=== PATIENT | female | born 1980 | race Caucasian/White ===

== ENCOUNTER 2020-11-04 14:46 | Emergency (ER) | payer OTHER ==
[2020-11-04 15:04] VITALS: TEMP 98.3; BMI 25.6
[2020-11-04] MEDS ORDERED: ACETAMINOPHEN 325 MG TABLET (FP) PO ONE (15:38)
[2020-11-04] MEDS ORDERED: ACETAMINOPHEN 325 MG TABLET (FP) ONE (15:42)
[2020-11-04 16:07] LABS: BASO % 0.8 % (0-2.0); EOS % 0.5 % (0-4.5); HEMATOCRIT 41.4 % (32.4-45.2); HEMOGLOBIN 13.8 GM/dL (10.7-15.3); LYMPH % 36.4 % (8-40); MCH 28.6 pg (25.7-33.7); MCHC 33.3 g/dl (32.0-36.0); MEAN CELL VOLUME 85.7 fl (80-96); MEAN PLT VOLUME 7.7 fl (7.5-11.1); MONO % 4.7 % (3.8-10.2); NEUT % 57.6 % (42.8-82.8); PLATELET COUNT 189 10^3/uL (134-434); RBC 4.83 M/mm3 (3.60-5.2); RDW 13.4 % (11.6-15.6); WHITE BLOOD COUNT 5.6 K/mm3 (4.0-10.0)
[2020-11-04 16:21] LABS: CHLORIDE 106 mmol/L (98-107); SODIUM 140 mmol/L (136-145)
[2020-11-04 16:23] LABS: BLOOD UREA NITROGEN 8.4 mg/dL (7-18); CALCIUM 9.2 mg/dL (8.5-10.1)
[2020-11-04 16:24] LABS: ANION GAP 7 MMOL/L (8-16); CO2 27 mmol/L (21-32); GLUCOSE,RANDOM 78 mg/dL (74-106)
[2020-11-04 16:27] LABS: CREATININE 0.7 mg/dL (0.55-1.3); SGOT/AST 13 U/L (15-37); SGPT/ALT 17 U/L (13-61)
[2020-11-04 16:28] LABS: BILIRUBIN,TOTAL 0.4 mg/dL (0.2-1); TOT PROT 7.9 g/dl (6.4-8.2)
[2020-11-04 16:30] LABS: ALK PHOS 54 U/L (45-117)
[2020-11-04] MEDS ORDERED: KETOROLAC TROMETHAMINE 30 MG/1 ML VIAL IVPUSH ONE (19:51)
[2020-11-04] MEDS ORDERED: KETOROLAC TROMETHAMINE 30 MG/1 ML VIAL ONE (19:55)
[2020-11-04 21:04] VITALS: BP 127/79; PULSE 76
== END 2020-11-04 21:03 | disposition home or self-care (01) ==
LOC: JER 14:46
PROC: 3E0333Z Introduction of Anti-inflammatory into Peripheral Vein, Percutaneous Approach (ICD-10-PCS; principal; 2020-11-04)
DX: M94.0 Chondrocostal junction syndrome [Tietze] (principal)
CPT/HCPCS: 36415; 71045-TC-FY; 80053; 84484; 85025; 93005; 93010; 99284-25

== ENCOUNTER 2024-06-28 17:47 | Emergency (ER) | payer OTHER ==
[2024-06-28 17:56] VITALS: BP 116/86; PULSE 85; RESP 18; TEMP 98.6; BMI 28.0
[2024-06-28] MEDS ORDERED: IBUPROFEN 600 MG TABLET (FP) PO ONE (18:57)
[2024-06-28] MEDS: IBUPROFEN 600 MG TABLET (FP) PO ONE (19:00)
== END 2024-06-28 20:18 | disposition home or self-care (01) ==
LOC: JERFT 17:47
PROC: 2W3KX1Z Immobilization of Left Finger using Splint (ICD-10-PCS; principal; 2024-06-28)
DX: M65.332 Trigger finger, left middle finger (principal); M79.645 Pain in left finger(s); M79.89 Other specified soft tissue disorders
CPT/HCPCS: 73130-TC-LT-FY; 99283-25